=== PATIENT | male | born 1945 | race Two or more races ===

== ENCOUNTER 2022-12-10 05:55 | Inpatient (IN) | payer OTHER, MEDICAID ==
[2022-12-10] VITALS (8 sets, daily range): BP systolic 95–145; BP diastolic 60–62; PULSE 67–93; RESP 14–24; TEMP 98.1–98.2; O2SAT 91–99
[~2022-12-10] VITALS: Ht 177.8 cm; Wt 147.0 kg
[2022-12-10 06:41] LABS: Basophils # (auto) 0 10 ^3/uL (0-0.2); Basophils % (auto) 0.4 % (0.0-2.0); Eosinophils # (auto) 0.1 10 ^3/uL (0-0.8); Eosinophils % (auto) 2.2 % (0.0-7.0); Hematocrit 28.4 % (41.0-53.0); Hemoglobin 9.1 g/dL (13.5-17.5); Lymphocytes # (auto) 0.6 10 ^3/uL (0.4-5.4); Lymphocytes % (auto) 11.3 % (10.0-50.0); Mean Corpuscular Hemoglobin 31.6 pg (28.0-32.0); Mean Corpuscular Volume 98.7 fL (80.0-100.0); Monocytes # (auto) 0.4 10 ^3/uL (0-1.3); Monocytes % (auto) 7.4 % (0.0-12.0); Neutrophils # (auto) 4.3 10 ^3/uL (1.6-8.6); Neutrophils % (auto) 78.7 % (37.0-80.0); Red Blood Cells 2.88 10^6/uL (4.5-5.90); Red Cell Distribution Width 15.9 % (11.8-14.3); White Blood Cell 5.4 10^3/uL (4.4-10.8)
[2022-12-10 06:56] LABS: INR 1.27 (0.9-1.15); Partial Thromboplastin Time 28.2 SEC (24.5-34.5); Prothrombin Time 13.1 sec (9.3-11.8)
[2022-12-10 07:03] LABS: Alanine Aminotransferase 14 U/L (7-40); Albumin 3.5 g/dL (3.2-4.8); Alkaline Phosphatase 59 U/L (46-116); Anion Gap 4 (5-15); Aspartate Aminotransferase 11 U/L (13-40); BUN/Creatinine Ratio 10.9 (10.0-20.0); Blood Urea Nitrogen 11 mg/dL (9-23); Calcium 8.6 mg/dL (8.7-10.4); Carbon Dioxide 36 mmol/L (20-30); Chloride 103 mmol/L (98-107); Glucose 147 mg/dL (74-106); Potassium 3.5 mmol/L (3.5-5.1); Sodium 143 mmol/L (136-145)
[2022-12-10 07:04] LABS: Bilirubin, Total 1.1 mg/dL (0.2-1.0); Total Protein 6.3 g/dL (5.7-8.2)
[2022-12-10] MEDS ORDERED: SPIRONOLACTONE 25 MG TAB PO ONE (07:30)
[2022-12-10] MEDS ORDERED: FUROSEMIDE 40 MG/4 ML VIAL IV ONE (07:30)
[2022-12-10] MEDS ORDERED: SODIUM CHLORIDE 0.9% 1,000 ML IV ONE (07:30)
[2022-12-10 09:04] LABS: Urine Bacteria MOD /hpf (None Seen); Urine Blood Negative /uL (Negative); Urine Clarity HAZY (Clear); Urine Color Yellow (Yellow); Urine Protein, UAD 1+ (Negative); Urine Specific Gravity 1.015 (1.001-1.035); Urine Urobilinogen Normal (Negative); Urine WBC 259 /hpf (0 - 3); Urine WBC Clumps PRESENT /hpf (None Seen); Urine pH 5.5 (5.0-8.0)
[2022-12-10] MEDS ORDERED: DEXTROSE (50%) 50ML SYRG IV PRN (11:30)
[2022-12-10] MEDS ORDERED: ALBUTEROL SULF 2.5 MG/0.5ML(0.5%) NEB SOLN NEB PRN (11:30)
[2022-12-10] MEDS: InsuLIN REG 1unit/0.01ml Soln (100units/ml) SC SCH ×3 (11:30→22:00)
[2022-12-10] MEDS ORDERED: NITROGLYCERIN 0.4 MG SL TAB SL PRN (11:30)
[2022-12-10] MEDS ORDERED: MORPHINE SULFATE INJ 2 MG/ml SYRG IV PRN (11:30)
[2022-12-10] MEDS ORDERED: TAMS0.4C36 PO (11:31)
[2022-12-10] MEDS ORDERED: HYDR-4297 PO (11:31)
[2022-12-10] MEDS ORDERED: METO-158 PO (11:31)
[2022-12-10] MEDS ORDERED: hydrALAZINE HCL 20 MG/ML VL IV PRN (11:45)
[2022-12-10] MEDS: ACCU-CHEK COMFORT CURVE STRIP VI SCH ×3 (11:55→23:25)
[2022-12-10] MEDS ORDERED: cefTRIAXone 1GM/50ML D5W 50 ML IV ONE (12:00)
[2022-12-10 13:31] LABS: Triglycerides 60 mg/dL (< 150)
[2022-12-10 13:32] LABS: LDL Cholesterol 56 mg/dL (< 100)
[2022-12-10 13:33] LABS: Cholesterol 132 mg/dL (< 200); HDL Cholesterol 59 mg/dL (40-59)
[2022-12-10] MEDS: IPRATROPIUM BROM 0.5 MG/2.5ML INH SOL NEB SCH ×3 (14:26→22:16)
[2022-12-10] MEDS: ALBUTEROL SULF 2.5 MG/0.5ML(0.5%) NEB SOLN NEB SCH ×3 (14:26→22:16)
[2022-12-10] MEDS ORDERED: IOHEXOL 350 MG/ML 100ML IJ ONE (21:53)
[2022-12-10] MEDS ORDERED: METOPROLOL TARTRATE 50 MG TAB PO SCH (22:00)
[2022-12-10] MEDS: METOPROLOL TARTRATE 50 MG TAB PO SCH (22:00)
[2022-12-10] MEDS: ATORVASTATIN 20 MG TAB PO SCH (22:00)
[2022-12-10] MEDS: SACUBITRIL-VALSARTAN 24mg/26mg TAB PO SCH (22:00)
[2022-12-10 23:42] LABS: Base Excess 8.1 mmol/L (-2.0-2.0)
[2022-12-11] VITALS (98 sets, daily range): BP systolic 66–165; BP diastolic 23–77; PULSE 60–140; RESP 10–26; TEMP 97.5–99; O2SAT 84–100
[2022-12-11 01:48] LABS: Base Excess 7.1 mmol/L (-2.0-2.0)
[2022-12-11] MEDS: IPRATROPIUM BROM 0.5 MG/2.5ML INH SOL NEB SCH ×6 (02:00→22:00)
[2022-12-11] MEDS: ALBUTEROL SULF 2.5 MG/0.5ML(0.5%) NEB SOLN NEB SCH ×6 (02:00→22:00)
[2022-12-11] MEDS ORDERED: SUCCINYLCHOLINE CHLORIDE 20 MG/ML 10ML VIAL IV ONE ×2 (02:04→03:00)
[2022-12-11] MEDS ORDERED: ETOMIDATE (2MG/ML) 20ML VIAL IV ONE ×2 (02:04→03:00)
[2022-12-11] MEDS ORDERED: PROPOFOL 100 ML IV ONE (02:15)
[2022-12-11] MEDS: PROPOFOL 100 ML IV SCH ×7 (02:20→21:03)
[2022-12-11] MEDS ORDERED: MIDAZOLAM DRIP 50 mg/50mL 50 ML IV ONE (02:56)
[2022-12-11] MEDS: MIDAZOLAM DRIP 50 mg/50mL 50 ML IV SCH ×4 (03:00→22:24)
[2022-12-11 04:10] LABS: Base Excess 6.8 mmol/L (-2.0-2.0)
[2022-12-11] MEDS: InsuLIN REG 1unit/0.01ml Soln (100units/ml) SC SCH ×4 (06:38→21:35)
[2022-12-11] MEDS: ACCU-CHEK COMFORT CURVE STRIP VI SCH ×4 (06:38→21:34)
[2022-12-11 08:57] LABS: Base Excess 9.3 mmol/L (-2.0-2.0)
[2022-12-11] MEDS: cefTRIAXone 1GM/50ML D5W 50 ML IV SCH (09:46)
[2022-12-11] MEDS: TAMSULOSIN HYDROCHLORIDE 0.4 MG CAP PO SCH (09:46)
[2022-12-11] MEDS ORDERED: FUROSEMIDE 40 MG/4 ML VIAL IV SCH (10:00)
[2022-12-11] MEDS ORDERED: ENOXAPARIN SOD 40 MG/0.4 ML SYRINGE SC SCH (10:00)
[2022-12-11] MEDS: METOPROLOL TARTRATE 50 MG TAB PO SCH ×2 (10:00→22:00)
[2022-12-11] MEDS: SACUBITRIL-VALSARTAN 24mg/26mg TAB PO SCH ×2 (10:00→22:00)
[2022-12-11] MEDS: ISOSORBIDE MONONITRATE ER 60 MG TAB PO SCH (10:00)
[2022-12-11] MEDS ORDERED: AZITHROMYCIN 500MG/ 250ML 250 ML IV ONE (11:30)
[2022-12-11] MEDS ORDERED: PANTOPRAZOLE 40 MG/10 ML VIAL INJ IV ONE (11:30)
[2022-12-11] MEDS ORDERED: fentaNYL Drip 2500mCg/250mlNS 250 ML IV SCH (12:45)
[2022-12-11] MEDS: POTASSIUM CHL 20MEQ/100ML 100 ML IV SCH ×2 (12:46→14:15)
[2022-12-11] MEDS: MAGNESIUM SULFATE 1GM/100ML 100 ML IV SCH ×2 (12:46→13:52)
[2022-12-11 14:22] LABS: Basophils # (auto) 0 10 ^3/uL (0-0.2); Basophils % (auto) 0.4 % (0.0-2.0); Eosinophils # (auto) 0 10 ^3/uL (0-0.8); Eosinophils % (auto) 0.7 % (0.0-7.0); Hematocrit 29.7 % (41.0-53.0); Hemoglobin 9.5 g/dL (13.5-17.5); Lymphocytes # (auto) 0.9 10 ^3/uL (0.4-5.4); Lymphocytes % (auto) 15.4 % (10.0-50.0); Mean Corpuscular Hemoglobin 31.7 pg (28.0-32.0); Mean Corpuscular Volume 98.9 fL (80.0-100.0); Monocytes # (auto) 0.7 10 ^3/uL (0-1.3); Monocytes % (auto) 12.6 % (0.0-12.0); Neutrophils # (auto) 3.9 10 ^3/uL (1.6-8.6); Neutrophils % (auto) 70.9 % (37.0-80.0); Nucleated Red Blood Cells % 0.1 %; Red Blood Cells 3.01 10^6/uL (4.5-5.90); Red Cell Distribution Width 15.9 % (11.8-14.3); White Blood Cell 5.5 10^3/uL (4.4-10.8)
[2022-12-11 14:52] LABS: Alanine Aminotransferase 12 U/L (7-40); Albumin 3.3 g/dL (3.2-4.8); Alkaline Phosphatase 49 U/L (46-116); Anion Gap 8 (5-15); Aspartate Aminotransferase 10 U/L (13-40); Blood Urea Nitrogen 8 mg/dL (9-23); Calcium 8.5 mg/dL (8.5-10.1); Carbon Dioxide 36 mmol/L (20-30); Glucose 113 mg/dL (74-106); Triglycerides 89 mg/dL (< 150)
[2022-12-11 14:53] LABS: Chloride 102 mmol/L (98-107); Phosphorus 3.1 mg/dL (2.4-5.1); Potassium 3.2 mmol/L (3.5-5.1); Sodium 146 mmol/L (136-145); Total Protein 6.1 g/dL (5.7-8.2)
[2022-12-11 14:54] LABS: Lactic Acid w/Reflex 2.6 mmol/L (0.4-2.0)
[2022-12-11 15:30] LABS: Magnesium 1.9 mg/dL (1.6-2.6)
[2022-12-11] MEDS: fentaNYL Drip 2500mCg/250mlNS 250 ML IV SCH (15:30)
[2022-12-11] MEDS: DOXYCYCLINE 100MG/250ML 250 ML IV SCH (15:56)
[2022-12-11] MEDS: PHENYLEPHRINE IV 250 ML IV SCH (16:00)
[2022-12-11] MEDS: NOREPINEPHRINE 8 MG/250ML KIT 250 ML IV SCH (18:39)
[2022-12-11 19:17] LABS: Base Excess 9.9 mmol/L (-2.0-2.0)
[2022-12-11 20:27] LABS: Potassium 3.1 mmol/L (3.5-5.1)
[2022-12-11 20:34] LABS: Magnesium 1.9 mg/dL (1.6-2.6)
[2022-12-11] MEDS: FUROSEMIDE 40 MG/4 ML VIAL IV SCH (21:25)
[2022-12-11] MEDS: ATORVASTATIN 20 MG TAB PO SCH (21:25)
[2022-12-11] MEDS: ENOXAPARIN SOD 150 MG/1 ML SYRINGE SC SCH (21:25)
[2022-12-12] VITALS (107 sets, daily range): BP systolic 100–168; BP diastolic 35–73; PULSE 72–109; RESP 18–24; TEMP 97.7–99.7; O2SAT 88–100
[2022-12-12] MEDS: PHENYLEPHRINE IV 250 ML IV SCH ×3 (00:20→17:00)
[2022-12-12 00:26] LABS: COVID19 ANTIGEN SOFIA FIA NEGATIVE (NEGATIVE); Rapid Influenza A Negative (Negative); Rapid Influenza B Negative (Negative)
[2022-12-12] MEDS: DOXYCYCLINE 100MG/250ML 250 ML IV SCH ×3 (00:45→23:52)
[2022-12-12] MEDS: IPRATROPIUM BROM 0.5 MG/2.5ML INH SOL NEB SCH ×6 (01:57→22:00)
[2022-12-12] MEDS: ALBUTEROL SULF 2.5 MG/0.5ML(0.5%) NEB SOLN NEB SCH ×6 (01:57→22:00)
[2022-12-12] MEDS: PROPOFOL 100 ML IV SCH ×7 (02:36→23:57)
[2022-12-12 04:22] LABS: Basophils # (auto) 0 10 ^3/uL (0-0.2); Basophils % (auto) 0.4 % (0.0-2.0); Eosinophils # (auto) 0 10 ^3/uL (0-0.8); Eosinophils % (auto) 0.6 % (0.0-7.0); Hematocrit 27.2 % (41.0-53.0); Hemoglobin 8.8 g/dL (13.5-17.5); Lymphocytes # (auto) 0.7 10 ^3/uL (0.4-5.4); Lymphocytes % (auto) 11.4 % (10.0-50.0); Mean Corpuscular Hemoglobin 31.9 pg (28.0-32.0); Mean Corpuscular Hgb Conc. 32.2 g/dL (32.0-36.0); Monocytes # (auto) 0.7 10 ^3/uL (0-1.3); Monocytes % (auto) 10.6 % (0.0-12.0); Neutrophils # (auto) 5.1 10 ^3/uL (1.6-8.6); Red Blood Cells 2.75 10^6/uL (4.5-5.90); Red Cell Distribution Width 15.8 % (11.8-14.3); White Blood Cell 6.6 10^3/uL (4.4-10.8)
[2022-12-12 04:40] LABS: Alanine Aminotransferase 10 U/L (7-40); Albumin 3.2 g/dL (3.2-4.8); Alkaline Phosphatase 52 U/L (46-116); Anion Gap 4 (5-15); Aspartate Aminotransferase < 8 U/L (13-40); BUN/Creatinine Ratio 9.1 (10.0-20.0); Blood Urea Nitrogen 9 mg/dL (9-23); Calcium 8.1 mg/dL (8.7-10.4); Carbon Dioxide 38 mmol/L (20-30); Chloride 101 mmol/L (98-107); Glucose 128 mg/dL (74-106); Magnesium 1.9 mg/dL (1.6-2.6); Sodium 143 mmol/L (136-145)
[2022-12-12 04:41] LABS: Bilirubin, Total 0.7 mg/dL (0.2-1.0)
[2022-12-12] MEDS ORDERED: POTASSIUM CHL 20MEQ/100ML 100 ML IV ONE (07:00)
[2022-12-12] MEDS: ACCU-CHEK COMFORT CURVE STRIP VI SCH ×4 (08:00→21:44)
[2022-12-12] MEDS: InsuLIN REG 1unit/0.01ml Soln (100units/ml) SC SCH ×4 (08:02→21:45)
[2022-12-12] MEDS ORDERED: MAGNESIUM SULFATE 1GM/100ML 100 ML IV SCH (09:00)
[2022-12-12] MEDS: ENOXAPARIN SOD 150 MG/1 ML SYRINGE SC SCH ×2 (09:45→21:44)
[2022-12-12] MEDS: PANTOPRAZOLE 40 MG/10 ML VIAL INJ IV SCH (09:45)
[2022-12-12] MEDS: POTASSIUM CHL 20MEQ/100ML 100 ML IV SCH ×4 (09:46→17:38)
[2022-12-12] MEDS: cefTRIAXone 1GM/50ML D5W 50 ML IV SCH (09:46)
[2022-12-12] MEDS ORDERED: POTASSIUM EFFERVESENT TAB 25 MEQ GT SCH (10:00)
[2022-12-12] MEDS ORDERED: AZITHROMYCIN 500MG/ 250ML 250 ML IV SCH (10:00)
[2022-12-12] MEDS: SACUBITRIL-VALSARTAN 24mg/26mg TAB PO SCH (10:00)
[2022-12-12] MEDS: METOPROLOL TARTRATE 50 MG TAB PO SCH ×2 (10:00→21:44)
[2022-12-12] MEDS ORDERED: POTASSIUM CHL 20 Meq TABLET PO SCH (10:00)
[2022-12-12] MEDS: ISOSORBIDE MONONITRATE ER 60 MG TAB PO SCH (10:00)
[2022-12-12] MEDS: FUROSEMIDE 40 MG/4 ML VIAL IV SCH ×3 (11:55→21:43)
[2022-12-12] MEDS ORDERED: MAGNESIUM SULFATE 1GM/100ML 100 ML IV ONE ×2 (12:15→12:30)
[2022-12-12] MEDS ORDERED: acetaZOLAMIDE SODIUM 500 MG VL IV ONE (12:30)
[2022-12-12 15:22] LABS: Potassium 3.3 mmol/L (3.5-5.1)
[2022-12-12 15:28] LABS: Magnesium 2.1 mg/dL (1.6-2.6)
[2022-12-12] MEDS: fentaNYL Drip 2500mCg/250mlNS 250 ML IV SCH (15:30)
[2022-12-12] MEDS: Jevity 1.2 Cal/Fiber 1 Liter GT SCH (15:55)
[2022-12-12] MEDS: NOREPINEPHRINE 8 MG/250ML KIT 250 ML IV SCH (16:00)
[2022-12-12] MEDS: MAGNESIUM SULFATE 1GM/100ML 100 ML IV SCH ×3 (17:23→18:43)
[2022-12-12 21:37] LABS: Potassium 3.7 mmol/L (3.5-5.1)
[2022-12-12] MEDS: POTASSIUM EFFERVESENT TAB 25 MEQ GT SCH (21:43)
[2022-12-12 21:44] LABS: Magnesium 2.3 mg/dL (1.6-2.6)
[2022-12-12] MEDS: ATORVASTATIN 20 MG TAB PO SCH (21:44)
[2022-12-13] VITALS (105 sets, daily range): BP systolic 90–137; BP diastolic 20–64; PULSE 70–93; RESP 19–21; TEMP 97.7–99.5; O2SAT 87–100
[2022-12-13] MEDS: PHENYLEPHRINE IV 250 ML IV SCH ×3 (01:52→20:33)
[2022-12-13] MEDS: IPRATROPIUM BROM 0.5 MG/2.5ML INH SOL NEB SCH ×6 (02:14→21:35)
[2022-12-13] MEDS: ALBUTEROL SULF 2.5 MG/0.5ML(0.5%) NEB SOLN NEB SCH ×6 (02:14→21:34)
[2022-12-13] MEDS: MIDAZOLAM DRIP 50 mg/50mL 50 ML IV SCH ×2 (03:00→21:40)
[2022-12-13] MEDS: fentaNYL Drip 2500mCg/250mlNS 250 ML IV SCH (03:30)
[2022-12-13] MEDS: PROPOFOL 100 ML IV SCH ×3 (03:47→22:49)
[2022-12-13 04:04] LABS: Basophils # (auto) 0 10 ^3/uL (0-0.2); Basophils % (auto) 0.4 % (0.0-2.0); Eosinophils # (auto) 0.2 10 ^3/uL (0-0.8); Eosinophils % (auto) 3.4 % (0.0-7.0); Hematocrit 29.5 % (41.0-53.0); Hemoglobin 9.6 g/dL (13.5-17.5); Lymphocytes # (auto) 0.5 10 ^3/uL (0.4-5.4); Lymphocytes % (auto) 8.3 % (10.0-50.0); Mean Corpuscular Hemoglobin 31.9 pg (28.0-32.0); Mean Corpuscular Hgb Conc. 32.6 g/dL (32.0-36.0); Monocytes # (auto) 0.6 10 ^3/uL (0-1.3); Monocytes % (auto) 10.3 % (0.0-12.0); Neutrophils # (auto) 4.3 10 ^3/uL (1.6-8.6); Neutrophils % (auto) 77.6 % (37.0-80.0); Red Blood Cells 3.01 10^6/uL (4.5-5.90); Red Cell Distribution Width 15.9 % (11.8-14.3); White Blood Cell 5.5 10^3/uL (4.4-10.8)
[2022-12-13 04:18] LABS: Albumin 3.4 g/dL (3.2-4.8); Alkaline Phosphatase 56 U/L (46-116); Anion Gap 3 (5-15); Aspartate Aminotransferase 15 U/L (13-40); BUN/Creatinine Ratio 8.2 (10.0-20.0); Blood Urea Nitrogen 8 mg/dL (9-23); Calcium 7.9 mg/dL (8.7-10.4); Carbon Dioxide 38 mmol/L (20-30); Chloride 98 mmol/L (98-107); Glucose 142 mg/dL (74-106); Magnesium 2.2 mg/dL (1.6-2.6); Potassium 3.6 mmol/L (3.5-5.1); Sodium 139 mmol/L (136-145)
[2022-12-13 04:19] LABS: Bilirubin, Total 0.7 mg/dL (0.2-1.0); Total Protein 6.3 g/dL (5.7-8.2)
[2022-12-13 04:31] LABS: Alanine Aminotransferase < 9 U/L (7-40)
[2022-12-13] MEDS: ACCU-CHEK COMFORT CURVE STRIP VI SCH ×4 (06:03→21:39)
[2022-12-13] MEDS: FUROSEMIDE 40 MG/4 ML VIAL IV SCH ×2 (06:03→17:45)
[2022-12-13] MEDS: POTASSIUM EFFERVESENT TAB 25 MEQ GT SCH ×2 (06:03→10:58)
[2022-12-13] MEDS: InsuLIN REG 1unit/0.01ml Soln (100units/ml) SC SCH ×4 (06:04→21:40)
[2022-12-13 07:20] LABS: Base Excess 10.8 mmol/L (-2.0-2.0)
[2022-12-13] MEDS ORDERED: acetaZOLAMIDE SODIUM 500 MG VL IV ONE (08:00)
[2022-12-13] MEDS: ENOXAPARIN SOD 150 MG/1 ML SYRINGE SC SCH ×2 (08:54→21:39)
[2022-12-13] MEDS: PANTOPRAZOLE 40 MG/10 ML VIAL INJ IV SCH (08:54)
[2022-12-13] MEDS: cefTRIAXone 1GM/50ML D5W 50 ML IV SCH (08:54)
[2022-12-13] MEDS ORDERED: FUROSEMIDE 20 MG/2 ML VIAL IV ONE ×2 (09:45→15:15)
[2022-12-13] MEDS ORDERED: METOPROLOL TARTRATE 25 MG TAB PO SCH (10:00)
[2022-12-13] MEDS ORDERED: FUROSEMIDE 20 MG/2 ML VIAL IV SCH (10:00)
[2022-12-13] MEDS: ASPirin 81 mg TAB PO SCH (10:58)
[2022-12-13 14:32] LABS: Chloride 99 mmol/L (98-107); Potassium 3.8 mmol/L (3.5-5.1); Sodium 140 mmol/L (136-145)
[2022-12-13 14:33] LABS: Anion Gap 4 (5-15); Carbon Dioxide 37 mmol/L (20-30)
[2022-12-13 14:34] LABS: Calcium 7.9 mg/dL (8.7-10.4)
[2022-12-13 14:38] LABS: BUN/Creatinine Ratio 8.1 (10.0-20.0); Blood Urea Nitrogen 8 mg/dL (9-23); Glucose 119 mg/dL (74-106)
[2022-12-13] MEDS: DOXYCYCLINE 100MG/250ML 250 ML IV SCH ×2 (15:05→21:40)
[2022-12-13] MEDS: NOREPINEPHRINE 8 MG/250ML KIT 250 ML IV SCH (16:00)
[2022-12-13] MEDS: METOPROLOL TARTRATE 25 MG TAB PO SCH (21:39)
[2022-12-13] MEDS: ATORVASTATIN 20 MG TAB PO SCH (21:39)
[2022-12-13] MEDS ORDERED: APIXABAN 5 MG TAB PO SCH (22:00)
[2022-12-14] VITALS (79 sets, daily range): BP systolic 79–146; BP diastolic 24–73; PULSE 70–120; RESP 15–21; TEMP 98.1–100.2; O2SAT 90–100
[2022-12-14] MEDS: ALBUTEROL SULF 2.5 MG/0.5ML(0.5%) NEB SOLN NEB SCH ×6 (00:40→22:14)
[2022-12-14] MEDS: IPRATROPIUM BROM 0.5 MG/2.5ML INH SOL NEB SCH ×6 (00:41→22:14)
[2022-12-14] MEDS: PHENYLEPHRINE IV 250 ML IV SCH ×3 (02:20→19:00)
[2022-12-14] MEDS ORDERED: EMPAGLIFLOZIN 10 MG TAB PO SCH (07:00)
[2022-12-14] MEDS: InsuLIN REG 1unit/0.01ml Soln (100units/ml) SC SCH ×4 (07:00→21:52)
[2022-12-14] MEDS: cefTRIAXone 1GM/50ML D5W 50 ML IV SCH (09:00)
[2022-12-14] MEDS: PANTOPRAZOLE 40 MG/10 ML VIAL INJ IV SCH (10:00)
[2022-12-14] MEDS: ENOXAPARIN SOD 150 MG/1 ML SYRINGE SC SCH ×2 (10:00→21:51)
[2022-12-14] MEDS ORDERED: ENOXAPARIN SOD 40 MG/0.4 ML SYRINGE SC SCH (10:00)
[2022-12-14] MEDS: METOPROLOL TARTRATE 25 MG TAB PO SCH ×2 (10:00→21:52)
[2022-12-14] MEDS: POTASSIUM EFFERVESENT TAB 25 MEQ GT SCH (10:00)
[2022-12-14] MEDS: ASPirin 81 mg TAB PO SCH (10:00)
[2022-12-14 11:24] LABS: Base Excess 6.1 mmol/L (-2.0-2.0)
[2022-12-14 12:42] LABS: Anion Gap 4 (5-15); BUN/Creatinine Ratio 8.9 (10.0-20.0); Blood Urea Nitrogen 9 mg/dL (9-23); Calcium 7.9 mg/dL (8.7-10.4); Carbon Dioxide 36 mmol/L (20-30); Chloride 99 mmol/L (98-107); Glucose 106 mg/dL (74-106); Magnesium 2.3 mg/dL (1.6-2.6); Potassium 4.1 mmol/L (3.5-5.1); Sodium 139 mmol/L (136-145)
[2022-12-14] MEDS: DOXYCYCLINE 100MG/250ML 250 ML IV SCH (14:14)
[2022-12-14] MEDS: fentaNYL Drip 2500mCg/250mlNS 250 ML IV SCH (15:30)
[2022-12-14] MEDS: NOREPINEPHRINE 8 MG/250ML KIT 250 ML IV SCH ×2 (16:00→20:38)
[2022-12-14 16:53] LABS: Basophils # (auto) 0 10 ^3/uL (0-0.2); Basophils % (auto) 0.5 % (0.0-2.0); Eosinophils # (auto) 0.2 10 ^3/uL (0-0.8); Eosinophils % (auto) 4.6 % (0.0-7.0); Hematocrit 32.7 % (41.0-53.0); Hemoglobin 10.5 g/dL (13.5-17.5); Lymphocytes # (auto) 0.6 10 ^3/uL (0.4-5.4); Mean Corpuscular Hemoglobin 31.3 pg (28.0-32.0); Mean Corpuscular Volume 97.7 fL (80.0-100.0); Monocytes # (auto) 0.5 10 ^3/uL (0-1.3); Monocytes % (auto) 9.8 % (0.0-12.0); Neutrophils # (auto) 3.8 10 ^3/uL (1.6-8.6); Neutrophils % (auto) 73.1 % (37.0-80.0); Nucleated Red Blood Cells % 0.2 %; Red Blood Cells 3.35 10^6/uL (4.5-5.90); Red Cell Distribution Width 16.6 % (11.8-14.3); White Blood Cell 5.2 10^3/uL (4.4-10.8)
[2022-12-14] MEDS: FUROSEMIDE 40 MG/4 ML VIAL IV SCH (18:05)
[2022-12-14] MEDS: ACCU-CHEK COMFORT CURVE STRIP VI SCH ×2 (18:06→21:51)
[2022-12-14] MEDS: ATORVASTATIN 20 MG TAB PO SCH (21:51)
[2022-12-14] MEDS: PROPOFOL 100 ML IV SCH (23:45)
[2022-12-15] VITALS (102 sets, daily range): BP systolic 95–161; BP diastolic 24–64; PULSE 70–111; RESP 14–22; TEMP 98.2–100.8; O2SAT 88–99
[2022-12-15] MEDS: DOXYCYCLINE 100MG/250ML 250 ML IV SCH ×2 (00:28→12:10)
[2022-12-15] MEDS: IPRATROPIUM BROM 0.5 MG/2.5ML INH SOL NEB SCH ×6 (02:18→22:19)
[2022-12-15] MEDS: ALBUTEROL SULF 2.5 MG/0.5ML(0.5%) NEB SOLN NEB SCH ×6 (02:18→22:19)
[2022-12-15] MEDS: PROPOFOL 100 ML IV SCH ×3 (02:35→20:33)
[2022-12-15] MEDS: MIDAZOLAM DRIP 50 mg/50mL 50 ML IV SCH (03:00)
[2022-12-15] MEDS: PHENYLEPHRINE IV 250 ML IV SCH ×3 (03:20→20:00)
[2022-12-15 05:24] LABS: Alanine Aminotransferase 31 U/L (7-40); Albumin 3.3 g/dL (3.2-4.8); Alkaline Phosphatase 60 U/L (46-116); Anion Gap 5 (5-15); Aspartate Aminotransferase 49 U/L (13-40); BUN/Creatinine Ratio 10.8 (10.0-20.0); Bilirubin, Total 0.5 mg/dL (0.2-1.0); Blood Urea Nitrogen 11 mg/dL (9-23); Carbon Dioxide 34 mmol/L (20-30); Chloride 99 mmol/L (98-107); Glucose 130 mg/dL (74-106); Magnesium 2.3 mg/dL (1.6-2.6); Potassium 4.1 mmol/L (3.5-5.1); Sodium 138 mmol/L (136-145); Total Protein 6.2 g/dL (5.7-8.2)
[2022-12-15 05:27] LABS: Basophils # (auto) 0 10 ^3/uL (0-0.2); Basophils % (auto) 0.6 % (0.0-2.0); Eosinophils # (auto) 0.3 10 ^3/uL (0-0.8); Hematocrit 29.4 % (41.0-53.0); Hemoglobin 9.5 g/dL (13.5-17.5); Lymphocytes # (auto) 0.7 10 ^3/uL (0.4-5.4); Lymphocytes % (auto) 11.8 % (10.0-50.0); Mean Corpuscular Hemoglobin 31.6 pg (28.0-32.0); Mean Corpuscular Hgb Conc. 32.4 g/dL (32.0-36.0); Mean Corpuscular Volume 97.3 fL (80.0-100.0); Monocytes # (auto) 0.5 10 ^3/uL (0-1.3); Monocytes % (auto) 8.9 % (0.0-12.0); Neutrophils # (auto) 4.4 10 ^3/uL (1.6-8.6); Neutrophils % (auto) 73.7 % (37.0-80.0); Red Blood Cells 3.02 10^6/uL (4.5-5.90); Red Cell Distribution Width 15.9 % (11.8-14.3)
[2022-12-15] MEDS: FUROSEMIDE 40 MG/4 ML VIAL IV SCH ×2 (06:03→17:36)
[2022-12-15] MEDS: InsuLIN REG 1unit/0.01ml Soln (100units/ml) SC SCH ×4 (06:39→21:54)
[2022-12-15] MEDS: ACCU-CHEK COMFORT CURVE STRIP VI SCH ×4 (06:39→21:53)
[2022-12-15] MEDS: cefTRIAXone 1GM/50ML D5W 50 ML IV SCH (08:07)
[2022-12-15 08:45] LABS: Base Excess 5.3 mmol/L (-2.0-2.0)
[2022-12-15] MEDS: PANTOPRAZOLE 40 MG/10 ML VIAL INJ IV SCH (09:58)
[2022-12-15] MEDS: ENOXAPARIN SOD 150 MG/1 ML SYRINGE SC SCH ×2 (09:58→21:53)
[2022-12-15] MEDS: METOPROLOL TARTRATE 25 MG TAB PO SCH ×2 (10:00→21:54)
[2022-12-15] MEDS: ASPirin 81 mg TAB PO SCH (10:00)
[2022-12-15] MEDS: POTASSIUM EFFERVESENT TAB 25 MEQ GT SCH (10:01)
[2022-12-15] MEDS: fentaNYL Drip 2500mCg/250mlNS 250 ML IV SCH (14:58)
[2022-12-15] MEDS: PIPERACILLIN-TAZOB 3.375GM 100 ML IV SCH ×2 (15:08→21:54)
[2022-12-15] MEDS: AMIODARONE HCL 200 MG TAB PO SCH (21:53)
[2022-12-15] MEDS: ATORVASTATIN 20 MG TAB PO SCH (21:53)
[2022-12-16] VITALS (100 sets, daily range): BP systolic 35–151; BP diastolic 22–89; PULSE 67–97; RESP 10–25; TEMP 98.1–99.5; O2SAT 91–100
[2022-12-16] MEDS: ALBUTEROL SULF 2.5 MG/0.5ML(0.5%) NEB SOLN NEB SCH ×5 (02:41→22:04)
[2022-12-16] MEDS: IPRATROPIUM BROM 0.5 MG/2.5ML INH SOL NEB SCH ×5 (02:41→22:04)
[2022-12-16] MEDS: MIDAZOLAM DRIP 50 mg/50mL 50 ML IV SCH (03:00)
[2022-12-16] MEDS: PHENYLEPHRINE IV 250 ML IV SCH ×3 (03:18→08:31)
[2022-12-16 04:05] LABS: Basophils # (auto) 0 10 ^3/uL (0-0.2); Basophils % (auto) 0.4 % (0.0-2.0); Eosinophils # (auto) 0.2 10 ^3/uL (0-0.8); Eosinophils % (auto) 3.5 % (0.0-7.0); Hematocrit 28.9 % (41.0-53.0); Hemoglobin 9.5 g/dL (13.5-17.5); Lymphocytes # (auto) 0.6 10 ^3/uL (0.4-5.4); Lymphocytes % (auto) 10.3 % (10.0-50.0); Mean Corpuscular Hemoglobin 32.1 pg (28.0-32.0); Mean Corpuscular Hgb Conc. 32.9 g/dL (32.0-36.0); Mean Corpuscular Volume 97.6 fL (80.0-100.0); Monocytes # (auto) 0.6 10 ^3/uL (0-1.3); Monocytes % (auto) 9.7 % (0.0-12.0); Neutrophils # (auto) 4.6 10 ^3/uL (1.6-8.6); Neutrophils % (auto) 76.1 % (37.0-80.0); Nucleated Red Blood Cells % 0.1 %; Red Blood Cells 2.96 10^6/uL (4.5-5.90); Red Cell Distribution Width 15.6 % (11.8-14.3); White Blood Cell 6.1 10^3/uL (4.4-10.8)
[2022-12-16 04:22] LABS: Alanine Aminotransferase 33 U/L (7-40); Albumin 3.3 g/dL (3.2-4.8); Alkaline Phosphatase 78 U/L (46-116); Anion Gap 6 (5-15); Aspartate Aminotransferase 43 U/L (13-40); BUN/Creatinine Ratio 11.3 (10.0-20.0); Bilirubin, Total 0.5 mg/dL (0.2-1.0); Blood Urea Nitrogen 13 mg/dL (9-23); Calcium 8.2 mg/dL (8.7-10.4); Carbon Dioxide 34 mmol/L (20-30); Chloride 98 mmol/L (98-107); Glucose 111 mg/dL (74-106); Magnesium 2.3 mg/dL (1.6-2.6); Sodium 138 mmol/L (136-145)
[2022-12-16 04:23] LABS: Total Protein 6.4 g/dL (5.7-8.2)
[2022-12-16] MEDS: FUROSEMIDE 40 MG/4 ML VIAL IV SCH ×2 (05:40→18:23)
[2022-12-16] MEDS: PIPERACILLIN-TAZOB 3.375GM 100 ML IV SCH ×3 (05:40→22:26)
[2022-12-16] MEDS: InsuLIN REG 1unit/0.01ml Soln (100units/ml) SC SCH ×4 (06:07→22:00)
[2022-12-16] MEDS: ACCU-CHEK COMFORT CURVE STRIP VI SCH ×4 (06:07→22:27)
[2022-12-16 06:52] LABS: Base Excess 7.3 mmol/L (-2.0-2.0)
[2022-12-16] MEDS: NOREPINEPHRINE 8 MG/250ML KIT 250 ML IV SCH (07:28)
[2022-12-16] MEDS: ASPirin 81 mg TAB PO SCH (07:43)
[2022-12-16] MEDS: METOPROLOL TARTRATE 25 MG TAB PO SCH ×2 (07:43→22:27)
[2022-12-16] MEDS: AMIODARONE HCL 200 MG TAB PO SCH ×2 (07:44→22:27)
[2022-12-16] MEDS: PANTOPRAZOLE 40 MG/10 ML VIAL INJ IV SCH (07:44)
[2022-12-16] MEDS: ENOXAPARIN SOD 150 MG/1 ML SYRINGE SC SCH ×2 (07:44→22:26)
[2022-12-16] MEDS: POTASSIUM EFFERVESENT TAB 25 MEQ GT SCH (07:44)
[2022-12-16] MEDS: fentaNYL Drip 2500mCg/250mlNS 250 ML IV SCH (08:31)
[2022-12-16] MEDS: PROPOFOL 100 ML IV SCH ×3 (08:51→23:39)
[2022-12-16] MEDS ORDERED: SODIUM CHLORIDE LOCK 0 ML ONE (11:23)
[2022-12-16] MEDS ORDERED: MIDAZOLAM HCL 5 MG/ML-1ML VIAL ONE (11:24)
[2022-12-16] MEDS ORDERED: LIDOCAINE 2%HCL (LOCAL ANESTH.) INJ 20ML MDV ONE (12:12)
[2022-12-16] MEDS ORDERED: EPINEPHrine HCL 1 MG/1 ML AMP ONE (12:12)
[2022-12-16] MEDS ORDERED: LIDOCAINE 2% JELLY 11ml (GLYDO) ONE (12:12)
[2022-12-16] MEDS: ATORVASTATIN 20 MG TAB PO SCH (22:27)
[2022-12-17] VITALS (98 sets, daily range): BP systolic 92–144; BP diastolic 30–81; PULSE 66–107; RESP 13–26; TEMP 98.6–100; O2SAT 89–100
[2022-12-17] MEDS: IPRATROPIUM BROM 0.5 MG/2.5ML INH SOL NEB SCH ×6 (02:00→21:57)
[2022-12-17] MEDS: ALBUTEROL SULF 2.5 MG/0.5ML(0.5%) NEB SOLN NEB SCH ×6 (02:00→21:57)
[2022-12-17] MEDS: MIDAZOLAM DRIP 50 mg/50mL 50 ML IV SCH (03:00)
[2022-12-17 04:12] LABS: Basophils # (auto) 0 10 ^3/uL (0-0.2); Basophils % (auto) 0.6 % (0.0-2.0); Eosinophils # (auto) 0.3 10 ^3/uL (0-0.8); Eosinophils % (auto) 4.6 % (0.0-7.0); Hematocrit 28.1 % (41.0-53.0); Hemoglobin 9.3 g/dL (13.5-17.5); Lymphocytes # (auto) 0.8 10 ^3/uL (0.4-5.4); Lymphocytes % (auto) 12.5 % (10.0-50.0); Mean Corpuscular Hemoglobin 31.9 pg (28.0-32.0); Mean Corpuscular Volume 96.6 fL (80.0-100.0); Monocytes # (auto) 0.6 10 ^3/uL (0-1.3); Monocytes % (auto) 9.2 % (0.0-12.0); Neutrophils # (auto) 4.5 10 ^3/uL (1.6-8.6); Neutrophils % (auto) 73.1 % (37.0-80.0); Red Blood Cells 2.91 10^6/uL (4.5-5.90); Red Cell Distribution Width 15.3 % (11.8-14.3); White Blood Cell 6.1 10^3/uL (4.4-10.8)
[2022-12-17 04:34] LABS: Alanine Aminotransferase 57 U/L (7-40); Albumin 3.3 g/dL (3.2-4.8); Alkaline Phosphatase 88 U/L (46-116); Anion Gap 7 (5-15); Aspartate Aminotransferase 83 U/L (13-40); BUN/Creatinine Ratio 12.1 (10.0-20.0); Blood Urea Nitrogen 14 mg/dL (9-23); Calcium 8.3 mg/dL (8.7-10.4); Carbon Dioxide 34 mmol/L (20-30); Chloride 98 mmol/L (98-107); Glucose 89 mg/dL (74-106); Magnesium 2.3 mg/dL (1.6-2.6); Potassium 3.5 mmol/L (3.5-5.1); Sodium 139 mmol/L (136-145)
[2022-12-17 04:35] LABS: Bilirubin, Total 0.5 mg/dL (0.2-1.0); Total Protein 6.4 g/dL (5.7-8.2)
[2022-12-17] MEDS: PHENYLEPHRINE IV 250 ML IV SCH ×3 (05:20→21:31)
[2022-12-17] MEDS: PIPERACILLIN-TAZOB 3.375GM 100 ML IV SCH ×3 (05:27→21:12)
[2022-12-17] MEDS: FUROSEMIDE 40 MG/4 ML VIAL IV SCH ×2 (05:27→18:20)
[2022-12-17] MEDS: ACCU-CHEK COMFORT CURVE STRIP VI SCH ×4 (06:37→21:30)
[2022-12-17] MEDS: InsuLIN REG 1unit/0.01ml Soln (100units/ml) SC SCH ×4 (06:37→21:30)
[2022-12-17 06:54] LABS: Base Excess 8.1 mmol/L (-2.0-2.0)
[2022-12-17] MEDS: ENOXAPARIN SOD 150 MG/1 ML SYRINGE SC SCH ×2 (08:50→21:13)
[2022-12-17] MEDS: AMIODARONE HCL 200 MG TAB PO SCH ×2 (08:50→21:13)
[2022-12-17] MEDS: METOPROLOL TARTRATE 25 MG TAB PO SCH ×2 (08:50→21:31)
[2022-12-17] MEDS: ASPirin 81 mg TAB PO SCH (08:50)
[2022-12-17] MEDS: PANTOPRAZOLE 40 MG/10 ML VIAL INJ IV SCH (08:51)
[2022-12-17 10:02] LABS: Base Excess 7.9 mmol/L (-2.0-2.0)
[2022-12-17] MEDS: POTASSIUM EFFERVESENT TAB 25 MEQ GT SCH (12:28)
[2022-12-17] MEDS: Jevity 1.2 Cal/Fiber 1 Liter GT SCH (12:28)
[2022-12-17] MEDS: fentaNYL Drip 2500mCg/250mlNS 250 ML IV SCH (15:14)
[2022-12-17] MEDS: NOREPINEPHRINE 8 MG/250ML KIT 250 ML IV SCH (15:15)
[2022-12-17] MEDS: PROPOFOL 100 ML IV SCH ×2 (15:36→21:12)
[2022-12-17] MEDS: GLYCOPYRROLATE 0.2 MG/ML 1ML VIAL IV PRN (16:21)
[2022-12-17] MEDS ORDERED: GLYCOPYRROLATE 0.2 MG/ML 1ML VIAL IV ONE (18:00)
[2022-12-17] MEDS: ATORVASTATIN 20 MG TAB PO SCH (21:12)
[2022-12-18] VITALS (67 sets, daily range): BP systolic 85–144; BP diastolic 31–94; PULSE 58–100; RESP 10–24; TEMP 97.7–100; O2SAT 95–100
[2022-12-18] MEDS: PROPOFOL 100 ML IV SCH ×2 (00:38→04:31)
[2022-12-18] MEDS: IPRATROPIUM BROM 0.5 MG/2.5ML INH SOL NEB SCH ×6 (02:02→22:04)
[2022-12-18] MEDS: ALBUTEROL SULF 2.5 MG/0.5ML(0.5%) NEB SOLN NEB SCH ×6 (02:02→22:04)
[2022-12-18] MEDS: MIDAZOLAM DRIP 50 mg/50mL 50 ML IV SCH (03:00)
[2022-12-18 04:36] LABS: Basophils # (auto) 0 10 ^3/uL (0-0.2); Basophils % (auto) 0.4 % (0.0-2.0); Eosinophils # (auto) 0.2 10 ^3/uL (0-0.8); Hematocrit 26.5 % (41.0-53.0); Hemoglobin 8.7 g/dL (13.5-17.5); Lymphocytes # (auto) 0.6 10 ^3/uL (0.4-5.4); Lymphocytes % (auto) 11.2 % (10.0-50.0); Mean Corpuscular Hemoglobin 31.8 pg (28.0-32.0); Mean Corpuscular Hgb Conc. 32.8 g/dL (32.0-36.0); Mean Corpuscular Volume 97.2 fL (80.0-100.0); Monocytes # (auto) 0.6 10 ^3/uL (0-1.3); Monocytes % (auto) 11.7 % (0.0-12.0); Neutrophils # (auto) 3.9 10 ^3/uL (1.6-8.6); Neutrophils % (auto) 72.7 % (37.0-80.0); Nucleated Red Blood Cells % 0.1 %; Red Blood Cells 2.73 10^6/uL (4.5-5.90); Red Cell Distribution Width 15.7 % (11.8-14.3); White Blood Cell 5.3 10^3/uL (4.4-10.8)
[2022-12-18 05:00] LABS: Alanine Aminotransferase 61 U/L (7-40); Albumin 3.3 g/dL (3.2-4.8); Alkaline Phosphatase 114 U/L (46-116); Anion Gap 6 (5-15); Aspartate Aminotransferase 78 U/L (13-40); BUN/Creatinine Ratio 16.3 (10.0-20.0); Bilirubin, Total 0.4 mg/dL (0.2-1.0); Blood Urea Nitrogen 17 mg/dL (9-23); Carbon Dioxide 34 mmol/L (20-30); Chloride 101 mmol/L (98-107); Glucose 112 mg/dL (74-106); Magnesium 2.2 mg/dL (1.6-2.6); Potassium 3.4 mmol/L (3.5-5.1); Sodium 141 mmol/L (136-145); Total Protein 6.3 g/dL (5.7-8.2)
[2022-12-18] MEDS: FUROSEMIDE 40 MG/4 ML VIAL IV SCH ×2 (05:12→18:09)
[2022-12-18] MEDS: PIPERACILLIN-TAZOB 3.375GM 100 ML IV SCH ×3 (05:13→22:23)
[2022-12-18] MEDS: ACCU-CHEK COMFORT CURVE STRIP VI SCH ×4 (06:06→22:27)
[2022-12-18] MEDS: InsuLIN REG 1unit/0.01ml Soln (100units/ml) SC SCH ×4 (06:06→22:00)
[2022-12-18] MEDS: PHENYLEPHRINE IV 250 ML IV SCH ×3 (06:20→23:00)
[2022-12-18] MEDS: POTASSIUM EFFERVESENT TAB 25 MEQ GT SCH (07:09)
[2022-12-18] MEDS ORDERED: POTASSIUM CHL 20MEQ/100ML 100 ML IV ONE ×2 (07:15→12:30)
[2022-12-18 08:41] LABS: Base Excess 8.3 mmol/L (-2.0-2.0)
[2022-12-18] MEDS: METOPROLOL TARTRATE 25 MG TAB PO SCH ×2 (10:22→22:00)
[2022-12-18] MEDS: ENOXAPARIN SOD 150 MG/1 ML SYRINGE SC SCH ×2 (10:22→22:23)
[2022-12-18] MEDS: GLYCOPYRROLATE 0.2 MG/ML 1ML VIAL IV PRN ×2 (10:22→17:45)
[2022-12-18] MEDS: ASPirin 81 mg TAB PO SCH (10:22)
[2022-12-18] MEDS: AMIODARONE HCL 200 MG TAB PO SCH ×2 (10:22→22:00)
[2022-12-18] MEDS: PANTOPRAZOLE 40 MG/10 ML VIAL INJ IV SCH (10:22)
[2022-12-18 12:12] LABS: Base Excess 7.7 mmol/L (-2.0-2.0)
[2022-12-18] MEDS: fentaNYL Drip 2500mCg/250mlNS 250 ML IV SCH (15:20)
[2022-12-18] MEDS: NOREPINEPHRINE 8 MG/250ML KIT 250 ML IV SCH (15:20)
[2022-12-18] MEDS: ATORVASTATIN 20 MG TAB PO SCH (22:00)
[2022-12-19] VITALS (35 sets, daily range): BP systolic 113–156; BP diastolic 45–81; PULSE 72–103; RESP 10–23; TEMP 97–99.7; O2SAT 81–100
[2022-12-19] MEDS: IPRATROPIUM BROM 0.5 MG/2.5ML INH SOL NEB SCH ×6 (01:56→22:04)
[2022-12-19] MEDS: ALBUTEROL SULF 2.5 MG/0.5ML(0.5%) NEB SOLN NEB SCH ×6 (01:56→22:04)
[2022-12-19] MEDS: MIDAZOLAM DRIP 50 mg/50mL 50 ML IV SCH (03:00)
[2022-12-19 04:44] LABS: Basophils # (auto) 0 10 ^3/uL (0-0.2); Basophils % (auto) 0.5 % (0.0-2.0); Eosinophils # (auto) 0.3 10 ^3/uL (0-0.8); Eosinophils % (auto) 5.1 % (0.0-7.0); Hematocrit 29.4 % (41.0-53.0); Hemoglobin 9.5 g/dL (13.5-17.5); Lymphocytes # (auto) 0.8 10 ^3/uL (0.4-5.4); Lymphocytes % (auto) 14.5 % (10.0-50.0); Mean Corpuscular Hemoglobin 31.4 pg (28.0-32.0); Mean Corpuscular Hgb Conc. 32.3 g/dL (32.0-36.0); Mean Corpuscular Volume 97.4 fL (80.0-100.0); Monocytes # (auto) 0.8 10 ^3/uL (0-1.3); Neutrophils # (auto) 3.4 10 ^3/uL (1.6-8.6); Neutrophils % (auto) 64.9 % (37.0-80.0); Red Blood Cells 3.02 10^6/uL (4.5-5.90); White Blood Cell 5.2 10^3/uL (4.4-10.8)
[2022-12-19 05:06] LABS: Alanine Aminotransferase 73 U/L (7-40); Albumin 3.6 g/dL (3.2-4.8); Alkaline Phosphatase 100 U/L (46-116); Anion Gap 6 (5-15); Aspartate Aminotransferase 85 U/L (13-40); BUN/Creatinine Ratio 13.6 (10.0-20.0); Bilirubin, Total 0.4 mg/dL (0.2-1.0); Blood Urea Nitrogen 16 mg/dL (9-23); Calcium 8.8 mg/dL (8.7-10.4); Carbon Dioxide 35 mmol/L (20-30); Chloride 100 mmol/L (98-107); Glucose 91 mg/dL (74-106); Magnesium 2.3 mg/dL (1.6-2.6); Potassium 3.5 mmol/L (3.5-5.1); Sodium 141 mmol/L (136-145)
[2022-12-19] MEDS: FUROSEMIDE 40 MG/4 ML VIAL IV SCH (05:33)
[2022-12-19] MEDS: PIPERACILLIN-TAZOB 3.375GM 100 ML IV SCH ×3 (05:36→21:56)
[2022-12-19] MEDS: InsuLIN REG 1unit/0.01ml Soln (100units/ml) SC SCH ×4 (06:50→22:00)
[2022-12-19] MEDS: ACCU-CHEK COMFORT CURVE STRIP VI SCH ×4 (06:50→22:19)
[2022-12-19] MEDS: PHENYLEPHRINE IV 250 ML IV SCH ×3 (07:20→23:24)
[2022-12-19] MEDS: POTASSIUM EFFERVESENT TAB 25 MEQ GT SCH (10:06)
[2022-12-19] MEDS: PANTOPRAZOLE 40 MG/10 ML VIAL INJ IV SCH (10:07)
[2022-12-19] MEDS: AMIODARONE HCL 200 MG TAB PO SCH ×2 (10:07→21:57)
[2022-12-19] MEDS: ASPirin 81 mg TAB PO SCH (10:07)
[2022-12-19] MEDS: METOPROLOL TARTRATE 25 MG TAB PO SCH ×2 (10:07→21:57)
[2022-12-19] MEDS: ENOXAPARIN SOD 150 MG/1 ML SYRINGE SC SCH ×2 (10:07→22:20)
[2022-12-19] MEDS: fentaNYL Drip 2500mCg/250mlNS 250 ML IV SCH (15:30)
[2022-12-19] MEDS: NOREPINEPHRINE 8 MG/250ML KIT 250 ML IV SCH (16:00)
[2022-12-19] MEDS: PROPOFOL 100 ML IV SCH (17:50)
[2022-12-19] MEDS: ATORVASTATIN 20 MG TAB PO SCH (22:23)
[2022-12-20] VITALS (33 sets, daily range): BP systolic 91–159; BP diastolic 45–80; PULSE 74–93; RESP 11–23; TEMP 98.6–99.3; O2SAT 91–99
[2022-12-20] MEDS: IPRATROPIUM BROM 0.5 MG/2.5ML INH SOL NEB SCH ×7 (01:52→22:16)
[2022-12-20] MEDS: ALBUTEROL SULF 2.5 MG/0.5ML(0.5%) NEB SOLN NEB SCH ×7 (01:52→22:16)
[2022-12-20] MEDS: MIDAZOLAM DRIP 50 mg/50mL 50 ML IV SCH (03:00)
[2022-12-20 05:10] LABS: Chloride 101 mmol/L (98-107); Potassium 3.7 mmol/L (3.5-5.1); Sodium 142 mmol/L (136-145)
[2022-12-20 05:11] LABS: Calcium 8.9 mg/dL (8.5-10.1)
[2022-12-20 05:16] LABS: BUN/Creatinine Ratio 17.8 (10.0-20.0); Blood Urea Nitrogen 16 mg/dL (9-23); Glucose 80 mg/dL (74-106)
[2022-12-20 05:27] LABS: Anion Gap 7 (5-15); Carbon Dioxide 34 mmol/L (20-30)
[2022-12-20] MEDS: PIPERACILLIN-TAZOB 3.375GM 100 ML IV SCH ×3 (06:19→21:50)
[2022-12-20] MEDS: ACCU-CHEK COMFORT CURVE STRIP VI SCH ×3 (06:19→17:15)
[2022-12-20] MEDS: InsuLIN REG 1unit/0.01ml Soln (100units/ml) SC SCH ×4 (06:19→22:00)
[2022-12-20 06:38] LABS: Magnesium 2.4 mg/dL (1.6-2.6)
[2022-12-20] MEDS: PHENYLEPHRINE IV 250 ML IV SCH (08:20)
[2022-12-20] MEDS: PANTOPRAZOLE 40 MG/10 ML VIAL INJ IV SCH (10:08)
[2022-12-20] MEDS: FUROSEMIDE 40 MG/4 ML VIAL IV SCH (10:08)
[2022-12-20] MEDS: POTASSIUM EFFERVESENT TAB 25 MEQ GT SCH (10:08)
[2022-12-20] MEDS: ENOXAPARIN SOD 150 MG/1 ML SYRINGE SC SCH ×2 (10:08→21:50)
[2022-12-20] MEDS: METOPROLOL TARTRATE 25 MG TAB PO SCH ×2 (10:09→21:49)
[2022-12-20] MEDS: ASPirin 81 mg TAB PO SCH (10:09)
[2022-12-20] MEDS: AMIODARONE HCL 200 MG TAB PO SCH ×2 (10:12→21:53)
[2022-12-20] MEDS ORDERED: SACUBITRIL-VALSARTAN 24mg/26mg TAB PO SCH (12:45)
[2022-12-20] MEDS ORDERED: SACUBITRIL-VALSARTAN 24mg/26mg TAB PO ONE (13:00)
[2022-12-20] MEDS: SACUBITRIL-VALSARTAN 24mg/26mg TAB PO SCH (21:48)
[2022-12-20] MEDS: ATORVASTATIN 20 MG TAB PO SCH (21:49)
[2022-12-21] VITALS (21 sets, daily range): BP systolic 110–148; BP diastolic 45–73; PULSE 9–97; RESP 18–20; TEMP 98.8–99; O2SAT 91–99
[2022-12-21] MEDS: ALBUTEROL SULF 2.5 MG/0.5ML(0.5%) NEB SOLN NEB SCH ×5 (02:35→22:28)
[2022-12-21] MEDS: IPRATROPIUM BROM 0.5 MG/2.5ML INH SOL NEB SCH ×5 (02:35→22:28)
[2022-12-21] MEDS: ACCU-CHEK COMFORT CURVE STRIP VI SCH ×5 (02:45→22:53)
[2022-12-21 05:35] LABS: Basophils # (auto) 0 10 ^3/uL (0-0.2); Basophils % (auto) 0.6 % (0.0-2.0); Eosinophils # (auto) 0.2 10 ^3/uL (0-0.8); Eosinophils % (auto) 3.6 % (0.0-7.0); Hematocrit 29.9 % (41.0-53.0); Hemoglobin 9.7 g/dL (13.5-17.5); Lymphocytes # (auto) 0.8 10 ^3/uL (0.4-5.4); Lymphocytes % (auto) 14.9 % (10.0-50.0); Mean Corpuscular Hemoglobin 31.2 pg (28.0-32.0); Mean Corpuscular Hgb Conc. 32.3 g/dL (32.0-36.0); Mean Corpuscular Volume 96.8 fL (80.0-100.0); Monocytes # (auto) 0.8 10 ^3/uL (0-1.3); Neutrophils # (auto) 3.7 10 ^3/uL (1.6-8.6); Neutrophils % (auto) 66.9 % (37.0-80.0); Nucleated Red Blood Cells % 0.1 %; Red Blood Cells 3.09 10^6/uL (4.5-5.90); Red Cell Distribution Width 14.8 % (11.8-14.3); White Blood Cell 5.6 10^3/uL (4.4-10.8)
[2022-12-21 05:53] LABS: Alanine Aminotransferase 61 U/L (7-40); Albumin 3.5 g/dL (3.2-4.8); Alkaline Phosphatase 71 U/L (46-116); Anion Gap 6 (5-15); Aspartate Aminotransferase 50 U/L (13-40); BUN/Creatinine Ratio 11.7 (10.0-20.0); Bilirubin, Total 0.5 mg/dL (0.2-1.0); Blood Urea Nitrogen 11 mg/dL (9-23); Calcium 8.8 mg/dL (8.7-10.4); Carbon Dioxide 33 mmol/L (20-30); Chloride 101 mmol/L (98-107); Magnesium 2.2 mg/dL (1.6-2.6); Potassium 3.5 mmol/L (3.5-5.1); Sodium 140 mmol/L (136-145); Total Protein 6.9 g/dL (5.7-8.2)
[2022-12-21] MEDS: PIPERACILLIN-TAZOB 3.375GM 100 ML IV SCH (06:26)
[2022-12-21] MEDS: InsuLIN REG 1unit/0.01ml Soln (100units/ml) SC SCH ×4 (07:00→23:08)
[2022-12-21 07:36] LABS: Glucose 107 mg/dL (74-106)
[2022-12-21] MEDS: POTASSIUM EFFERVESENT TAB 25 MEQ GT SCH (09:52)
[2022-12-21] MEDS: METOPROLOL TARTRATE 25 MG TAB PO SCH ×2 (09:52→22:53)
[2022-12-21] MEDS: ASPirin 81 mg TAB PO SCH (09:52)
[2022-12-21] MEDS: ENOXAPARIN SOD 150 MG/1 ML SYRINGE SC SCH (09:52)
[2022-12-21] MEDS: SACUBITRIL-VALSARTAN 24mg/26mg TAB PO SCH ×2 (09:52→22:53)
[2022-12-21] MEDS: AMIODARONE HCL 200 MG TAB PO SCH ×2 (09:53→22:44)
[2022-12-21] MEDS: SPIRONOLACTONE 25 MG TAB PO SCH (09:53)
[2022-12-21 11:34] LABS: Base Excess 11.1 mmol/L (-2.0-2.0)
[2022-12-21] MEDS: TAMSULOSIN HYDROCHLORIDE 0.4 MG CAP PO SCH (11:38)
[2022-12-21] MEDS: FUROSEMIDE 40 MG/4 ML VIAL IV SCH (11:41)
[2022-12-21] MEDS: APIXABAN 5 MG TAB PO SCH ×2 (11:44→22:44)
[2022-12-21] MEDS: ACETAMINOPHEN 325 MG TAB PO PRN (12:00)
[2022-12-21] MEDS ORDERED: methylPREDNISolone SOD SUCC 40 MG/ML VL IV ONE (12:30)
[2022-12-21] MEDS: ATORVASTATIN 20 MG TAB PO SCH (22:44)
[2022-12-22] VITALS (20 sets, daily range): BP systolic 110–136; BP diastolic 43–67; PULSE 9–112; RESP 16–22; TEMP 98.4–98.8; O2SAT 91–100
[2022-12-22] MEDS: IPRATROPIUM BROM 0.5 MG/2.5ML INH SOL NEB SCH ×6 (03:11→22:47)
[2022-12-22] MEDS: ALBUTEROL SULF 2.5 MG/0.5ML(0.5%) NEB SOLN NEB SCH ×6 (03:11→22:46)
[2022-12-22] MEDS: EMPAGLIFLOZIN 10 MG TAB PO SCH (06:35)
[2022-12-22] MEDS: ACCU-CHEK COMFORT CURVE STRIP VI SCH ×4 (06:35→22:06)
[2022-12-22] MEDS: InsuLIN REG 1unit/0.01ml Soln (100units/ml) SC SCH ×4 (06:36→21:53)
[2022-12-22] MEDS ORDERED: methylPREDNISolone SOD SUCC 40 MG/ML VL IV SCH (10:00)
[2022-12-22] MEDS: SPIRONOLACTONE 25 MG TAB PO SCH (11:00)
[2022-12-22] MEDS: POTASSIUM EFFERVESENT TAB 25 MEQ GT SCH (11:00)
[2022-12-22] MEDS: SACUBITRIL-VALSARTAN 24mg/26mg TAB PO SCH ×3 (11:01→23:18)
[2022-12-22] MEDS: TAMSULOSIN HYDROCHLORIDE 0.4 MG CAP PO SCH (11:01)
[2022-12-22] MEDS: METOPROLOL TARTRATE 25 MG TAB PO SCH ×3 (11:01→23:19)
[2022-12-22] MEDS: AMIODARONE HCL 200 MG TAB PO SCH ×3 (11:01→23:18)
[2022-12-22] MEDS: APIXABAN 5 MG TAB PO SCH ×3 (11:01→23:18)
[2022-12-22] MEDS: ASPirin 81 mg TAB PO SCH (11:01)
[2022-12-22] MEDS: ACETAMINOPHEN 325 MG TAB PO PRN (13:42)
[2022-12-22] MEDS ORDERED: ALBUTEROL MEDNEB 2.5 mg/3ml NEB ONE ×3 (14:11→21:42)
[2022-12-22] MEDS: ATORVASTATIN 20 MG TAB PO SCH ×2 (22:00→23:19)
[2022-12-23] VITALS (18 sets, daily range): BP systolic 109–157; BP diastolic 55–63; PULSE 9–104; RESP 16–22; TEMP 98.9–99.1; O2SAT 92–99
[2022-12-23] MEDS ORDERED: ALBUTEROL MEDNEB 2.5 mg/3ml NEB ONE ×6 (02:11→22:12)
[2022-12-23] MEDS: IPRATROPIUM BROM 0.5 MG/2.5ML INH SOL NEB SCH ×6 (02:59→22:25)
[2022-12-23] MEDS: ALBUTEROL SULF 2.5 MG/0.5ML(0.5%) NEB SOLN NEB SCH ×6 (02:59→22:25)
[2022-12-23] MEDS: ACCU-CHEK COMFORT CURVE STRIP VI SCH ×4 (06:33→22:14)
[2022-12-23] MEDS: InsuLIN REG 1unit/0.01ml Soln (100units/ml) SC SCH ×4 (06:33→22:19)
[2022-12-23] MEDS: EMPAGLIFLOZIN 10 MG TAB PO SCH (06:33)
[2022-12-23] MEDS: SPIRONOLACTONE 25 MG TAB PO SCH (09:14)
[2022-12-23] MEDS: SACUBITRIL-VALSARTAN 24mg/26mg TAB PO SCH ×2 (09:15→22:05)
[2022-12-23] MEDS: FUROSEMIDE 40 MG TAB PO SCH (09:16)
[2022-12-23] MEDS: ASPirin 81 mg TAB PO SCH (09:16)
[2022-12-23] MEDS: APIXABAN 5 MG TAB PO SCH ×2 (09:16→22:05)
[2022-12-23] MEDS: AMIODARONE HCL 200 MG TAB PO SCH ×2 (09:17→22:05)
[2022-12-23] MEDS: TAMSULOSIN HYDROCHLORIDE 0.4 MG CAP PO SCH (09:17)
[2022-12-23] MEDS: POTASSIUM EFFERVESENT TAB 25 MEQ GT SCH (09:18)
[2022-12-23] MEDS: METOPROLOL TARTRATE 25 MG TAB PO SCH ×2 (09:20→22:00)
[2022-12-23] MEDS: ATORVASTATIN 20 MG TAB PO SCH (22:10)
[2022-12-24] VITALS (18 sets, daily range): BP systolic 122–135; BP diastolic 0–74; PULSE 9–99; RESP 16–20; TEMP 98–98.9; O2SAT 94–100
[2022-12-24] MEDS: ALBUTEROL SULF 2.5 MG/0.5ML(0.5%) NEB SOLN NEB SCH ×6 (02:00→22:26)
[2022-12-24] MEDS: IPRATROPIUM BROM 0.5 MG/2.5ML INH SOL NEB SCH ×6 (02:00→22:26)
[2022-12-24] MEDS ORDERED: ALBUTEROL MEDNEB 2.5 mg/3ml NEB ONE ×5 (06:04→22:24)
[2022-12-24] MEDS: InsuLIN REG 1unit/0.01ml Soln (100units/ml) SC SCH ×4 (07:00→21:55)
[2022-12-24] MEDS: ACCU-CHEK COMFORT CURVE STRIP VI SCH ×4 (07:14→21:56)
[2022-12-24] MEDS: EMPAGLIFLOZIN 10 MG TAB PO SCH (07:16)
[2022-12-24] MEDS: ASPirin 81 mg TAB PO SCH (09:24)
[2022-12-24] MEDS: POTASSIUM EFFERVESENT TAB 25 MEQ GT SCH (09:24)
[2022-12-24] MEDS: SPIRONOLACTONE 25 MG TAB PO SCH (09:25)
[2022-12-24] MEDS: APIXABAN 5 MG TAB PO SCH ×2 (09:25→21:53)
[2022-12-24] MEDS: TAMSULOSIN HYDROCHLORIDE 0.4 MG CAP PO SCH (09:25)
[2022-12-24] MEDS: SACUBITRIL-VALSARTAN 24mg/26mg TAB PO SCH ×2 (09:25→21:52)
[2022-12-24] MEDS: AMIODARONE HCL 200 MG TAB PO SCH ×2 (09:25→21:52)
[2022-12-24] MEDS: FUROSEMIDE 40 MG TAB PO SCH (09:26)
[2022-12-24] MEDS: METOPROLOL TARTRATE 25 MG TAB PO SCH ×2 (09:26→21:54)
[2022-12-24] MEDS: ATORVASTATIN 20 MG TAB PO SCH (21:53)
[2022-12-25] VITALS (14 sets, daily range): BP systolic 115–130; BP diastolic 58–64; PULSE 58–86; RESP 16–20; TEMP 98.3–98.9; O2SAT 95–100
[2022-12-25] MEDS: IPRATROPIUM BROM 0.5 MG/2.5ML INH SOL NEB SCH ×5 (02:00→18:03)
[2022-12-25] MEDS: ALBUTEROL SULF 2.5 MG/0.5ML(0.5%) NEB SOLN NEB SCH ×5 (02:00→18:03)
[2022-12-25] MEDS ORDERED: IPRATROPIUM BROM 0.5 MG/2.5ML INH SOL ONE (05:47)
[2022-12-25] MEDS ORDERED: ALBUTEROL MEDNEB 2.5 mg/3ml NEB ONE ×2 (05:48→09:51)
[2022-12-25] MEDS: EMPAGLIFLOZIN 10 MG TAB PO SCH (06:35)
[2022-12-25] MEDS: InsuLIN REG 1unit/0.01ml Soln (100units/ml) SC SCH ×3 (06:43→17:00)
[2022-12-25] MEDS: ACCU-CHEK COMFORT CURVE STRIP VI SCH ×3 (06:43→17:00)
[2022-12-25] MEDS: POTASSIUM EFFERVESENT TAB 25 MEQ GT SCH (10:31)
[2022-12-25] MEDS: SPIRONOLACTONE 25 MG TAB PO SCH (10:32)
[2022-12-25] MEDS: TAMSULOSIN HYDROCHLORIDE 0.4 MG CAP PO SCH (10:32)
[2022-12-25] MEDS: ASPirin 81 mg TAB PO SCH (10:32)
[2022-12-25] MEDS: SACUBITRIL-VALSARTAN 24mg/26mg TAB PO SCH (10:32)
[2022-12-25] MEDS: APIXABAN 5 MG TAB PO SCH (10:32)
[2022-12-25] MEDS: AMIODARONE HCL 200 MG TAB PO SCH (10:32)
[2022-12-25] MEDS: METOPROLOL TARTRATE 25 MG TAB PO SCH (10:33)
[2022-12-25] MEDS: FUROSEMIDE 40 MG TAB PO SCH (10:33)
[2022-12-25 17:08] LABS: COVID19 ANTIGEN SOFIA FIA NEGATIVE (NEGATIVE)
== END 2022-12-25 19:46 | DRG 207 ==
LOC: ER 05:55 → EDBD 05:55 → TELE 11:30 → TELE-WESTW 20:42 → DOU IN ICU 12-11 00:10 → ICU WEST 12-11 03:49 → TELE-EAST 12-20 22:55
PROVIDERS: ADMIT Nurse Practitioner Family; ATTEND Internal Medicine Pulmonary Disease
PROC: 5A1955Z Respiratory Ventilation, Greater than 96 Consecutive Hours (ICD-10-PCS; principal; 2022-12-11)
PROC: 0BH17EZ Insertion of Endotracheal Airway into Trachea, Via Natural or Artificial Opening (ICD-10-PCS; 2022-12-11)
PROC: 02HV33Z Insertion of Infusion Device into Superior Vena Cava, Percutaneous Approach (ICD-10-PCS; 2022-12-11)
PROC: B548ZZA Ultrasonography of Superior Vena Cava, Guidance (ICD-10-PCS; 2022-12-11)
PROC: 5A09357 Assistance with Respiratory Ventilation, Less than 24 Consecutive Hours, Continuous Positive Airway Pressure (ICD-10-PCS; 2022-12-11)
PROC: 0BC38ZZ Extirpation of Matter from Right Main Bronchus, Via Natural or Artificial Opening Endoscopic (ICD-10-PCS; 2022-12-16)
PROC: 5A09357 Assistance with Respiratory Ventilation, Less than 24 Consecutive Hours, Continuous Positive Airway Pressure (ICD-10-PCS; 2022-12-18)
PROC: 5A09357 Assistance with Respiratory Ventilation, Less than 24 Consecutive Hours, Continuous Positive Airway Pressure (ICD-10-PCS; 2022-12-19)
PROC: 5A09357 Assistance with Respiratory Ventilation, Less than 24 Consecutive Hours, Continuous Positive Airway Pressure (ICD-10-PCS; 2022-12-23)
DX: J15.69 Pneumonia due to other Gram-negative bacteria (principal); G93.41 Metabolic encephalopathy; R57.0 Cardiogenic shock; J96.21 Acute and chronic respiratory failure with hypoxia; J81.0 Acute pulmonary edema; J96.22 Acute and chronic respiratory failure with hypercapnia; I50.23 Acute on chronic systolic (congestive) heart failure; N30.00 Acute cystitis without hematuria; J81.1 Chronic pulmonary edema; Z68.43 Body mass index [BMI] 50.0-59.9, adult; I11.0 Hypertensive heart disease with heart failure; Z20.822 Contact with and (suspected) exposure to COVID-19; I87.2 Venous insufficiency (chronic) (peripheral); E78.5 Hyperlipidemia, unspecified; D63.8 Anemia in other chronic diseases classified elsewhere; E66.01 Morbid (severe) obesity due to excess calories; I48.0 Paroxysmal atrial fibrillation; J98.09 Other diseases of bronchus, not elsewhere classified; E11.9 Type 2 diabetes mellitus without complications; E87.6 Hypokalemia; K27.9 Peptic ulcer, site unspecified, unspecified as acute or chronic, without hemorrhage or perforation; N40.0 Benign prostatic hyperplasia without lower urinary tract symptoms; Z79.01 Long term (current) use of anticoagulants; Z79.899 Other long term (current) drug therapy; Z99.81 Dependence on supplemental oxygen; Z51.5 Encounter for palliative care; Z86.73 Personal history of transient ischemic attack (TIA), and cerebral infarction without residual deficits
CPT/HCPCS: 36415; 36600; 70450; 71045; 71275; 76604; 76705; 80048; 80053; 80061; 81001; 82805; 82962; 83036; 83605; 83690; 83735; 83880; 84100; 84132; 84443; 84478; 84484; 85025; 85379; 85610; 85730; 87040; 87070; 87081; 87086; 87205; 87426; 87804; 92610; 93005; 93306; 93886; 93970; 94002; 94003; 94640; 94660; 95819; 96365; 96375; 97110; 97116; 97163; 97530; 99291; C9113; G0378; J0171; J0330; J0696; J1815; J2250; J2543; J2704; J3480; J3490; J7060

== ENCOUNTER 2023-02-25 16:46 | Inpatient (IN) | payer OTHER, MEDICAID ==
[~2023-02-25] VITALS: Ht 170.2 cm; Wt 141.4 kg
[~2023-02-25 16:46] MED LIST: HYDR-4297 PO; METO-158 PO; TAMS0.4C36 PO
[2023-02-25 17:35] VITALS: O2SAT 96
[2023-02-25 19:30] VITALS: PULSE 70; RESP 18; O2SAT 95
[2023-02-25 19:37] LABS: Basophils # (auto) 0 10 ^3/uL (0-0.2); Basophils % (auto) 0.7 % (0.0-2.0); Eosinophils # (auto) 0.1 10 ^3/uL (0-0.8); Eosinophils % (auto) 3.5 % (0.0-7.0); Hematocrit 35.1 % (41.0-53.0); Hemoglobin 11.2 g/dL (13.5-17.5); Lymphocytes # (auto) 0.5 10 ^3/uL (0.4-5.4); Lymphocytes % (auto) 18.4 % (10.0-50.0); Mean Corpuscular Hgb Conc. 31.9 g/dL (32.0-36.0); Mean Corpuscular Volume 94.1 fL (80.0-100.0); Monocytes # (auto) 0.3 10 ^3/uL (0-1.3); Monocytes % (auto) 14.2 % (0.0-12.0); Neutrophils # (auto) 1.6 10 ^3/uL (1.6-8.6); Neutrophils % (auto) 63.2 % (37.0-80.0); Nucleated Red Blood Cells % 0.2 %; Red Blood Cells 3.73 10^6/uL (4.5-5.90); Red Cell Distribution Width 14.9 % (11.8-14.3); White Blood Cell 2.5 10^3/uL (4.4-10.8)
[2023-02-25 19:53] LABS: INR 1.1 (0.9-1.15); Partial Thromboplastin Time 35.5 SEC (24.5-34.5); Prothrombin Time 11.5 sec (9.3-11.8)
[2023-02-25 20:02] LABS: Alanine Aminotransferase 26 U/L (7-40); Albumin 3.4 g/dL (3.2-4.8); Alkaline Phosphatase 52 U/L (46-116); Anion Gap 5 (5-15); Aspartate Aminotransferase 22 U/L (13-40); BUN/Creatinine Ratio 11.7 (10.0-20.0); Bilirubin, Total 0.6 mg/dL (0.2-1.0); Blood Urea Nitrogen 13 mg/dL (9-23); Calcium 8.3 mg/dL (8.5-10.1); Carbon Dioxide 31 mmol/L (20-30); Chloride 102 mmol/L (98-107); Glucose 97 mg/dL (74-106); Potassium 4.1 mmol/L (3.5-5.1); Sodium 138 mmol/L (136-145)
[2023-02-25 20:03] LABS: Total Protein 6.4 g/dL (5.7-8.2)
[2023-02-25] MEDS ORDERED: FUROSEMIDE 20 MG TAB PO ONE (21:30)
[2023-02-25] MEDS ORDERED: cefTRIAXone 1GM/50ML D5W 50 ML IV ONE (23:30)
[2023-02-26] MEDS ORDERED: ACETAMINOPHEN 325 MG TAB PO ONE (03:30)
[2023-02-26 08:00] VITALS: PULSE 66; RESP 17; O2SAT 98
[2023-02-26] MEDS ORDERED: DEXTROSE (50%) 50ML SYRG IV PRN (12:15)
[2023-02-26] MEDS ORDERED: ACETAMINOPHEN 325 MG TAB PO PRN (12:15)
[2023-02-26] MEDS ORDERED: AZITHROMYCIN 500MG/ 250ML 250 ML IV ONE (12:15)
[2023-02-26] MEDS ORDERED: ALBUTEROL SULF 2.5 MG/0.5ML(0.5%) NEB SOLN NEB PRN (13:00)
[2023-02-26] MEDS: hydrALAZINE HCL 25 MG TAB PO SCH ×3 (13:23→21:03)
[2023-02-26 14:03] LABS: Triglycerides 74 mg/dL (< 150)
[2023-02-26 14:04] LABS: LDL Cholesterol 58 mg/dL (< 100)
[2023-02-26 14:05] LABS: Cholesterol 116 mg/dL (< 200); HDL Cholesterol 39 mg/dL (40-59)
[2023-02-26 15:06] LABS: Urine Bacteria NONE SEEN /hpf (None Seen); Urine Blood 1+ /uL (Negative); Urine Clarity Clear (Clear); Urine Color Yellow (Yellow); Urine Protein, UAD TRACE (Negative); Urine Specific Gravity 1.025 (1.001-1.035); Urine Urobilinogen Normal (Negative); Urine WBC 7 /hpf (0 - 3)
[2023-02-26 15:09] VITALS: BP 128/68; PULSE 74; RESP 20; O2SAT 95
[2023-02-26 15:17] VITALS: O2SAT 95
[2023-02-26 15:40] LABS: Rapid Influenza A Negative (Negative); Rapid Influenza B Negative (Negative)
[2023-02-26 15:41] LABS: COVID19 ANTIGEN SOFIA FIA NEGATIVE (NEGATIVE)
[2023-02-26] MEDS: InsuLIN REG 1unit/0.01ml Soln (100units/ml) SC SCH ×2 (17:00→22:00)
[2023-02-26] MEDS: ACCU-CHEK COMFORT CURVE STRIP VI SCH ×2 (17:28→22:14)
[2023-02-26 17:53] VITALS: O2SAT 99
[2023-02-26 19:50] VITALS: PULSE 62; RESP 16; O2SAT 98
[2023-02-26] MEDS: METOPROLOL TARTRATE 50 MG TAB PO SCH (22:00)
[2023-02-27] VITALS (13 sets, daily range): BP systolic 109–134; BP diastolic 41–64; PULSE 20–100; RESP 16–99; TEMP 97.8–98.7; O2SAT 98–100
[2023-02-27] MEDS: hydrALAZINE HCL 25 MG TAB PO SCH ×2 (05:21→21:59)
[2023-02-27] MEDS: InsuLIN REG 1unit/0.01ml Soln (100units/ml) SC SCH ×4 (05:27→22:05)
[2023-02-27] MEDS: ACCU-CHEK COMFORT CURVE STRIP VI SCH ×4 (05:27→21:53)
[2023-02-27 05:53] LABS: Basophils # (auto) 0 10 ^3/uL (0-0.2); Basophils % (auto) 0.5 % (0.0-2.0); Eosinophils # (auto) 0.1 10 ^3/uL (0-0.8); Eosinophils % (auto) 3.6 % (0.0-7.0); Hematocrit 34.2 % (41.0-53.0); Hemoglobin 11.3 g/dL (13.5-17.5); Lymphocytes # (auto) 0.7 10 ^3/uL (0.4-5.4); Monocytes # (auto) 0.3 10 ^3/uL (0-1.3); Monocytes % (auto) 11.4 % (0.0-12.0); Neutrophils # (auto) 1.4 10 ^3/uL (1.6-8.6); Neutrophils % (auto) 56.5 % (37.0-80.0); Red Blood Cells 3.64 10^6/uL (4.5-5.90); Red Cell Distribution Width 14.2 % (11.8-14.3); White Blood Cell 2.5 10^3/uL (4.4-10.8)
[2023-02-27 06:11] LABS: Alanine Aminotransferase 20 U/L (7-40); Albumin 3.3 g/dL (3.2-4.8); Alkaline Phosphatase 51 U/L (46-116); Anion Gap 5 (5-15); Aspartate Aminotransferase 15 U/L (13-40); Bilirubin, Total 0.5 mg/dL (0.2-1.0); Calcium 7.9 mg/dL (8.7-10.4); Carbon Dioxide 30 mmol/L (20-30); Chloride 102 mmol/L (98-107); Glucose 86 mg/dL (74-106); Potassium 4.1 mmol/L (3.5-5.1); Sodium 137 mmol/L (136-145); Total Protein 6.2 g/dL (5.7-8.2)
[2023-02-27 06:16] LABS: BUN/Creatinine Ratio 13.2 (10.0-20.0); Blood Urea Nitrogen 14 mg/dL (9-23)
[2023-02-27] MEDS: cefTRIAXone 1GM/50ML D5W 50 ML IV SCH (08:43)
[2023-02-27] MEDS: ENOXAPARIN SOD 40 MG/0.4 ML SYRINGE SC SCH (08:43)
[2023-02-27] MEDS: METOPROLOL TARTRATE 50 MG TAB PO SCH ×2 (08:43→22:00)
[2023-02-27] MEDS ORDERED: AZITHROMYCIN 500MG/ 250ML 250 ML IV SCH (10:00)
[2023-02-27] MEDS ORDERED: TAMSULOSIN HYDROCHLORIDE 0.4 MG CAP PO SCH (10:00)
[2023-02-27] MEDS ORDERED: FUROSEMIDE 20 MG TAB PO ONE (13:15)
[2023-02-27] MEDS ORDERED: ALBUTEROL SULF 2.5 MG/0.5ML(0.5%) NEB SOLN ONE (13:40)
[2023-02-27] MEDS ORDERED: IPRATROPIUM BROM 0.5 MG/2.5ML INH SOL ONE (13:40)
[2023-02-27] MEDS: IPRATROPIUM BROM 0.5 MG/2.5ML INH SOL NEB SCH ×2 (14:00→19:38)
[2023-02-27] MEDS: ALBUTEROL SULF 2.5 MG/0.5ML(0.5%) NEB SOLN NEB SCH ×2 (14:00→19:38)
[2023-02-27] MEDS: FUROSEMIDE 40 MG TAB PO SCH ×2 (18:00→18:10)
[2023-02-27] MEDS: TAMSULOSIN HYDROCHLORIDE 0.4 MG CAP PO SCH (18:00)
[2023-02-27] MEDS: DOXYCYCLINE 100 MG TAB/CAP PO SCH (21:53)
[2023-02-28] VITALS (7 sets, daily range): BP systolic 96–115; BP diastolic 43–60; PULSE 54–63; RESP 18–20; TEMP 97.7–98.3; O2SAT 98–100
[2023-02-28] MEDS: FUROSEMIDE 40 MG TAB PO SCH ×2 (06:12→18:37)
[2023-02-28] MEDS: InsuLIN REG 1unit/0.01ml Soln (100units/ml) SC SCH ×4 (06:16→21:52)
[2023-02-28] MEDS: ACCU-CHEK COMFORT CURVE STRIP VI SCH ×3 (06:16→21:45)
[2023-02-28] MEDS: cefTRIAXone 1GM/50ML D5W 50 ML IV SCH (09:04)
[2023-02-28] MEDS: ENOXAPARIN SOD 40 MG/0.4 ML SYRINGE SC SCH (09:49)
[2023-02-28] MEDS: DOXYCYCLINE 100 MG TAB/CAP PO SCH ×2 (09:49→21:45)
[2023-02-28] MEDS: hydrALAZINE HCL 25 MG TAB PO SCH ×2 (09:52→21:53)
[2023-02-28] MEDS: METOPROLOL TARTRATE 50 MG TAB PO SCH ×2 (09:52→21:53)
[2023-02-28] MEDS: TAMSULOSIN HYDROCHLORIDE 0.4 MG CAP PO SCH (18:36)
[2023-03-01] VITALS (13 sets, daily range): BP systolic 104–110; BP diastolic 41–60; PULSE 59–72; RESP 16–20; TEMP 97.4–98.5; O2SAT 96–100
[2023-03-01] MEDS: FUROSEMIDE 40 MG TAB PO SCH ×2 (05:55→18:06)
[2023-03-01] MEDS: InsuLIN REG 1unit/0.01ml Soln (100units/ml) SC SCH ×4 (06:19→21:37)
[2023-03-01] MEDS: ACCU-CHEK COMFORT CURVE STRIP VI SCH ×4 (06:19→21:35)
[2023-03-01] MEDS: ALBUTEROL SULF 2.5 MG/0.5ML(0.5%) NEB SOLN NEB PRN ×3 (07:42→22:52)
[2023-03-01] MEDS: IPRATROPIUM BROM 0.5 MG/2.5ML INH SOL NEB PRN ×3 (07:43→22:52)
[2023-03-01] MEDS: cefTRIAXone 1GM/50ML D5W 50 ML IV SCH (09:47)
[2023-03-01] MEDS: DOXYCYCLINE 100 MG TAB/CAP PO SCH ×2 (09:47→21:35)
[2023-03-01] MEDS: ENOXAPARIN SOD 40 MG/0.4 ML SYRINGE SC SCH (09:50)
[2023-03-01] MEDS: hydrALAZINE HCL 25 MG TAB PO SCH ×2 (09:52→22:00)
[2023-03-01] MEDS: METOPROLOL TARTRATE 50 MG TAB PO SCH ×2 (09:52→22:00)
[2023-03-01] MEDS: DOCUSATE SOD 100 MG CAP PO SCH ×2 (11:04→21:35)
[2023-03-01] MEDS: TAMSULOSIN HYDROCHLORIDE 0.4 MG CAP PO SCH (18:06)
[2023-03-02] VITALS (7 sets, daily range): BP systolic 105–136; BP diastolic 34–54; PULSE 56–94; RESP 16–20; TEMP 97.9–98.3; O2SAT 94–98
[2023-03-02] MEDS: FUROSEMIDE 40 MG TAB PO SCH (05:47)
[2023-03-02] MEDS: ACCU-CHEK COMFORT CURVE STRIP VI SCH ×2 (06:02→10:32)
[2023-03-02] MEDS: InsuLIN REG 1unit/0.01ml Soln (100units/ml) SC SCH ×2 (06:03→10:34)
[2023-03-02] MEDS: IPRATROPIUM BROM 0.5 MG/2.5ML INH SOL NEB PRN (07:33)
[2023-03-02] MEDS: ALBUTEROL SULF 2.5 MG/0.5ML(0.5%) NEB SOLN NEB PRN (07:33)
[2023-03-02] MEDS: DOXYCYCLINE 100 MG TAB/CAP PO SCH (09:21)
[2023-03-02] MEDS: cefTRIAXone 1GM/50ML D5W 50 ML IV SCH (09:22)
[2023-03-02] MEDS: hydrALAZINE HCL 25 MG TAB PO SCH (09:26)
[2023-03-02] MEDS: METOPROLOL TARTRATE 50 MG TAB PO SCH (09:27)
[2023-03-02] MEDS: DOCUSATE SOD 100 MG CAP PO SCH (09:27)
[2023-03-02] MEDS: ENOXAPARIN SOD 40 MG/0.4 ML SYRINGE SC SCH (09:28)
== END 2023-03-02 16:00 | DRG 177 ==
LOC: EDBD 16:46 → ER 16:46 → OVERFLOW 02-26 12:13 → CENTRAL 02-26 23:17
PROVIDERS: ADMIT Nurse Practitioner Family; ATTEND Family Medicine
PROC: 05HA33Z Insertion of Infusion Device into Left Brachial Vein, Percutaneous Approach (ICD-10-PCS; principal; 2023-03-02)
PROC: B54NZZA Ultrasonography of Left Upper Extremity Veins, Guidance (ICD-10-PCS; 2023-03-02)
DX: J15.69 Pneumonia due to other Gram-negative bacteria (principal); I50.43 Acute on chronic combined systolic (congestive) and diastolic (congestive) heart failure; J96.21 Acute and chronic respiratory failure with hypoxia; N39.0 Urinary tract infection, site not specified; Z68.42 Body mass index [BMI] 45.0-49.9, adult; J15.9 Unspecified bacterial pneumonia; E11.9 Type 2 diabetes mellitus without complications; E66.01 Morbid (severe) obesity due to excess calories; Z20.822 Contact with and (suspected) exposure to COVID-19; I11.0 Hypertensive heart disease with heart failure; N40.0 Benign prostatic hyperplasia without lower urinary tract symptoms; E78.00 Pure hypercholesterolemia, unspecified; Z71.3 Dietary counseling and surveillance
CPT/HCPCS: 36415; 71045; 80053; 80061; 81001; 82962; 83036; 83880; 84443; 84484; 85025; 85610; 85730; 87040; 87070; 87081; 87086; 87205; 87426; 87804; 94640; 97110; 97163; 97530; G0378; J1815